=== PATIENT | female | born 1975 | race American Indian/Alaskan Native ===

== ENCOUNTER → 2016-10-13 | Outpatient (CLI) | payer BC ==
--- NOTE | 2016-10-13 16:36 | Diagnostic Imaging Report ---
EXAMINATION: Transabdominal and transvaginal pelvic ultrasound. INDICATION: Abnormal uterine bleeding. FINDINGS: The uterus is 8.8 x 4.9 x 4.7 cm. The endometrial stripe is 9 mm in thickness. In the anterior aspect of the cervix, there is a 1.7 cm cystic lesion compatible with a nabothian cyst. There is no uterine mass seen otherwise. The ovaries are not seen, probably obscured by bowel gas. There is a small to moderate amount of fluid in the pelvis. IMPRESSION: Nabothian cyst seen in the cervix with no focal uterine mass identified otherwise. Small to moderate amounts of free fluid in the pelvis seen. Dictated by: Dictated on workstation # [id number]
== END ==
LOC: RAD 14:06
PROVIDERS: ATTEND Obstetrics & Gynecology
DX: N88.8 Other specified noninflammatory disorders of cervix uteri (principal); N93.8 Other specified abnormal uterine and vaginal bleeding
CPT/HCPCS: 76830; 76856

== ENCOUNTER 2016-10-27 11:57 | Outpatient (CLI) | payer BC ==
[~2016-10-27] VITALS: Ht 158.8 cm; Wt 74.4 kg
[2016-10-27 12:11] VITALS: BP 133/74
[2016-10-27 12:38] LABS: BASOPHILS # (AUTO) 0.1 10^3/uL (0.0-0.1); BASOPHILS % (AUTO) 1 % (0-10); EOSINOPHILS # (AUTO) 0.2 10^3/uL (0.0-0.3); EOSINOPHILS % (AUTO) 2 % (0-10); LYMPHOCYTES # (AUTO) 1.9 X 10^3 (1.0-4.0); LYMPHOCYTES % (AUTO) 24 % (12-44); MEAN CORPUSCULAR HEMOGLOBIN 32 PG (25-34); MEAN CORPUSCULAR HGB CONC 34 G/DL (32-36); MEAN CORPUSCULAR VOLUME 94 FL (80-99); MEAN PLATELET VOLUME 9.6 FL (7.4-10.4); MONOCYTES # (AUTO) 0.7 X 10^3 (0.0-1.0); MONOCYTES % (AUTO) 8 % (0-12); NEUTROPHILS # (AUTO) 5.2 X 10^3 (1.8-7.8); NEUTROPHILS % (AUTO) 65 % (42-75); PLATELET COUNT 334 10^3/uL (130-400); RED BLOOD COUNT 4.85 10^6/uL (4.35-5.85); RED CELL DISTRIBUTION WIDTH 13.2 % (10.0-14.5)
[2016-10-27] MEDS ORDERED: LEVO112T2 PO (12:40)
[2016-10-29] MEDS ORDERED: IBUP-1773 PO (10:19)
== END 2016-10-27 12:25 | disposition home or self-care (01) ==
LOC: PREOP 11:57
PROVIDERS: ATTEND Obstetrics & Gynecology
DX: Z01.812 Encounter for preprocedural laboratory examination (principal); Z11.2 Encounter for screening for other bacterial diseases; N93.8 Other specified abnormal uterine and vaginal bleeding
CPT/HCPCS: 36415; 84703; 85025; 86850; 86900; 86901; 87081

== ENCOUNTER 2016-10-29 08:43 | Day surgery (SDC) | payer BC ==
[~2016-10-29] VITALS: Ht 158.8 cm; Wt 74.4 kg
[~2016-10-29 08:43] MED LIST: LEVO112T2 PO
[2016-10-29 08:55] VITALS: BP 130/70
[2016-10-29] MEDS ORDERED: CYCL1DRO OP (09:06)
[2016-10-29] MEDS ORDERED: LACTATED RINGERS 1,000 ML IV PRN (09:25)
[2016-10-29] MEDS ORDERED: ONDANSETRON 4 MG/2 ML (SDV) Z0FRAN IV ONE (09:30)
[2016-10-29] MEDS ORDERED: FAMOTIDINE 20MG/2ML IV (PEPCID) IV ONE (09:30)
[2016-10-29] MEDS ORDERED: MIDAZOLAM 2 MG/2 ML (VERSED) VIAL IV ONE (09:30)
--- NOTE | 2016-10-29 10:02 | Progress Note-Pre Operative ---
Pre-Operative Progress Note H&P Reviewed The H&P was reviewed, patient examined and no changes noted. Date Seen by Provider: Oct 29, 2016 Time Seen by Provider: 10:00 Date H&P Reviewed: Oct 29, 2016 Time H&P Reviewed: 09:55 Pre-Operative Diagnosis: AUB, History of infertility ANGÉLICA CHAVEZ DO Oct 29, 2016 10:02 am
[2016-10-29] MEDS ORDERED: D5 LR IV SOLUTION 1,000 ML IV SCH (10:18)
[2016-10-29] MEDS ORDERED: IBUP-1773 PO (10:19)
--- NOTE | 2016-10-29 10:20 | Discharge Inst-Women's Service ---
Discharge Inst-Women's Serv Depart Medication/Instructions New, Converted or Re-Newed RX: RX on Chart Consults/Follow Up Additional Follow Up: Yes Orders/Referrals Dr. Chavez in 2-3 weeks Activity Activity: Activity as Tolerated Driving Instructions: You May Drive NO SMOKING: NO SMOKING Nothing Inside Vagina: No Douching, No [place] (x 2 weeks), No Tampons Diet Discharge Diet: No Restrictions Symptoms to Report to : Bleeding Excessive, Pain Increased, Fever Over 101 Degrees F, Vaginal Bleeding Increase, Questions/Concerns For Any Problems or Questions: Contact Your Physician Skin/Wound Care Bathing Instructions: Shower (x 2 weeks) ANGÉLICA CHAVEZ DO Oct 29, 2016 10:20
[2016-10-29] MEDS ORDERED: LIDOCAINE PF 2% 5 ML (XYLOCAINE) VIAL ONE (10:29)
[2016-10-29] MEDS ORDERED: proPOfol 200 MG/20 ML (DIPRIVAN) VIAL IV ONE (10:29)
[2016-10-29] MEDS ORDERED: SEVOFLURANE (ULTANE) 15 ML INHAL SOLN ONE ×3 (10:29→11:12)
[2016-10-29] MEDS ORDERED: BUPIVACAINE 0.25% 30 ML (SENSORCAINE) VIAL ONE (10:29)
[2016-10-29] MEDS ORDERED: LACTATED RINGERS 1,000 ML IV ONE ×2 (10:29→11:12)
[2016-10-29] MEDS ORDERED: ONDANSETRON 4 MG/2 ML (SDV) Z0FRAN IVP PRN ×2 (10:30→11:45)
[2016-10-29] MEDS ORDERED: KETOROLAC 30 MG/ML VIAL IVP ONE ×2 (10:30→11:45)
[2016-10-29] MEDS ORDERED: MIDAZOLAM 2 MG/2 ML (VERSED) VIAL ONE (10:31)
[2016-10-29] MEDS ORDERED: fentaNYL INJECTION 100 MCG/2 ML AMP ONE (10:31)
[2016-10-29] MEDS ORDERED: DEXAMETHASONE PF 10 MG/ML (DECADRON) VIAL ONE (11:07)
[2016-10-29] MEDS ORDERED: PROMETHAZINE INJ 25 MG/ML (PHENERGAN) AMP IVP ONE (11:45)
[2016-10-29] MEDS ORDERED: fentaNYL INJECTION 100 MCG/2 ML AMP IVP PRN (11:45)
[2016-10-29 12:35] VITALS: BP 119/54
[2016-10-29 13:05] VITALS: BP 123/65
[2016-10-29 13:15] VITALS: BP 123/65
[2016-10-29] MEDS ORDERED: IBUPROFEN 600 MG (MOTRIN) TAB PO SCH (18:00)
--- NOTE | 2016-11-01 23:55 | OPERATIVE REPORT ---
PROCEDURE PHYSICIAN: ANGÉLICA CHAVEZ DATE OF PROCEDURE: 10/29/2016 PREOPERATIVE DIAGNOSES: 1. Abnormal uterine bleeding. 2. History of infertility. POSTOPERATIVE DIAGNOSES: 1. Abnormal uterine bleeding. 2. History of infertility. PROCEDURE: 1. D\T\C. 2. Hysteroscopy. SURGEON: Dr. Angélica Chavez. ANESTHESIA: General endotracheal. ESTIMATED BLOOD LOSS: Minimal. URINE OUTPUT: 20 mL clear drained at the end of procedure. FLUIDS: 1000 mL lactated ringer solution. FINDINGS: Normal uterine cavity with moderate amount of fluffy endometrial tissue. No intracavitary lesions or abnormalities. No adnexal fullness or masses appreciated on bimanual examination. SPECIMEN SENT: Endometrial curettings. INDICATIONS FOR THE PROCEDURE: This 41-year-old female is a patient that been established in my office had no concerns of her menstrual cycle prior to the last month where she had a significant amount of bleeding in a 2 week time span to the point the patient was afraid of becoming anemic. She came to my office for evaluation. Pelvic ultrasound was ordered, which was within normal limits. We discuss performing a D\T\C hysteroscopy both for treatment and diagnostic purposes due to her BMI of over 30 and age of over 41 with abnormal uterine bleeding. Discussed the possibility of endometrial hyperplasia or carcinoma so to rule this out as well. The risks of the procedure were discussed with the patient and her in detail in the preoperative area. The risk of bleeding, infection, damaging the uterus, permanent infertility, postoperative complications including thromboembolic events, and anesthesia, were all discussed with the patient in detail. After all of her questions were answered with her present, consent was obtained. The patient was taken to the operating room. OPERATIVE REPORT IN DETAIL: Once in the operating room, general anesthesia was found to be adequate. She was placed in the dorsal lithotomy position, prepped and draped in normal sterile fashion. She was first examined under anesthesia. The uterus is not enlarged, freely mobile. There is no adnexal fullness or masses appreciated on bimanual examination. A weighted speculum was inserted into the patient's vagina. A right angle retractor is used to visualize the cervix, grasped at the 12 o'clock position using a long Allis clamp. I then sound the uterine cavity depth, it was found to be 7 cm. I perform a paracervical block at 3 and 9 o'clock positions using 0.25% Marcaine. 5 mL are used at each injection site. Care was taken to aspirate before injecting. I then gently dilate the cervix using Hegar dilators to allow placement of my Truclear hysteroscope using the Truclear fluid management system which there is a leak in my bag so the deficit is not accurate. I use normal saline as my visual medium and progress the hysteroscope into the intrauterine cavity which appears to be grossly normal. I then perform a gentle curette of all endometrial and repeat my hysteroscope and once again, no abnormalities or lesions are noted of the endometrial cavity. After which I remove all the instruments from the patient's vagina. The patient tolerated the procedure well and was taken to the recovery area in stable condition. Lap and sponge counts were correct at the end of the procedure and instrument count is correct as well. Straight catheterization of 20 mL of clear urine is removed after the procedure is completed. Job ID: [id number] Dictated Date: 10/29/2016 11:33:53 Real Estate Broker Associate Date: 11/01/2016 23:44:27 / twan
== END 2016-10-29 13:25 | disposition home or self-care (01) ==
LOC: SDC 08:43
PROVIDERS: ATTEND Obstetrics & Gynecology
DX: N93.9 Abnormal uterine and vaginal bleeding, unspecified (principal); N84.0 Polyp of corpus uteri; E05.00 Thyrotoxicosis with diffuse goiter without thyrotoxic crisis or storm; Z85.850 Personal history of malignant neoplasm of thyroid; Z79.899 Other long term (current) drug therapy
CPT/HCPCS: 86850; 86900; 86901; 88305; 94664

== ENCOUNTER → 2017-03-17 | Outpatient (CLI) | payer BC ==
[~2017-03-17] MED LIST changes: +CYCL1DRO OP; +IBUP-1773 PO
--- NOTE | 2017-03-18 09:03 | Diagnostic Imaging Report ---
Bilateral screening mammogram 2D views with tomosynthesis. The current study was also evaluated with a Computer Aided Detection (CAD) system. INDICATION: Screening. No current complaints stated on the questionnaire. COMPARISON: None. This is a baseline exam. FINDINGS: The breasts are composed of heterogeneously dense parenchyma which may decrease mammographic sensitivity. No definite mass or suspicious calcifications seen. Questionable architectural distortion in the 2-view images is seen which appears to relate to summation artifact based on the tomographic evaluation. This involves mostly the outer aspect of the right breast breast and central aspect of the left MLO view. IMPRESSION: Focal compression evaluation for questionable architectural distortion in the outer aspect of the right CC and central aspect of the left MLO views with ultrasound evaluation recommended. ACR BI-RADS Category 0: Incomplete. (Needs additional imaging evaluation). Result letter will be mailed to the patient. Note: At least 10% of breast cancer is not imaged by mammography. Dictated by: Dictated on workstation # [id number]
== END ==
LOC: RAD 15:22
PROVIDERS: ATTEND Obstetrics & Gynecology
DX: Z12.31 Encounter for screening mammogram for malignant neoplasm of breast (principal)
CPT/HCPCS: 77067

== ENCOUNTER → 2017-03-26 | Outpatient (CLI) | payer BC ==
--- NOTE | 2017-03-26 18:17 | Diagnostic Imaging Report ---
Bilateral diagnostic mammogram with tomography. The current study was also evaluated with a Computer Aided Detection (CAD) system. COMPARISON: 03/17/2017. INDICATION: Asymmetries along the outer aspect of the right breast and central aspect of the left breast seen on recent screening of 03/17/2017. FINDINGS: Focal compression views and tomography evaluation demonstrate persistent asymmetries without definitive underlying lesion probably related to the underlying fibroglandular tissue with summation artifact. IMPRESSION: The asymmetries on recent screening are favored to be secondary summation artifact from the background dense parenchyma. Ultrasound evaluation pending. ACR BI-RADS Category 0: Incomplete. (Needs additional imaging evaluation). Result letter will be mailed to the patient. Note: At least 10% of breast cancer is not imaged by mammography. Dictated by: Dictated on workstation # [id number]
--- NOTE | 2017-03-26 18:27 | Diagnostic Imaging Report ---
Bilateral breast ultrasound. INDICATION: Asymmetries seen in the breasts bilaterally. FINDINGS: The four quadrants and retroareolar region of each breast is scanned with no underlying abnormality seen. IMPRESSION: Negative study. Asymmetries seen on mammography are favored to be summation artifact of parenchyma but are indeterminate. Evaluation with a six-month mammographic follow-up is recommended. ACR BI-RADS Category 3: Probably benign findings. Dictated by: Dictated on workstation # [id number]
== END ==
LOC: RAD 08:38
PROVIDERS: ATTEND Obstetrics & Gynecology
DX: N64.89 Other specified disorders of breast (principal)
CPT/HCPCS: 77066

== ENCOUNTER → 2017-05-19 | Outpatient (CLI) | payer BC ==
--- NOTE | 2017-05-19 15:01 | Diagnostic Imaging Report ---
Indication: Evaluate viability. FINDINGS: There is a small intrauterine gestational sac containing a pole. Crosby-rump length measurement is approximately 4 mm consistent with 6 weeks 1 day gestation. heart rate was recorded 66 beats per minute. No perigestational sac hemorrhage is seen. A yolk sac is present. Adnexa are unremarkable. IMPRESSION: Single live IUP 6 weeks 1 day gestational age. The estimated date of confinement sonographically is 01/11/2018. Dictated by: Dictated on workstation # [id number]
== END ==
LOC: RAD 13:42
PROVIDERS: ATTEND Obstetrics & Gynecology Reproductive Endocrinology
DX: O09.521 Supervision of elderly multigravida, first trimester (principal); Z3A.01 Less than 8 weeks gestation of pregnancy
CPT/HCPCS: 76817

== ENCOUNTER 2017-05-29 15:30 | Emergency (ER) | payer BC ==
[~2017-05-29] VITALS: Ht 157.5 cm; Wt 63.0 kg
--- NOTE | 2017-05-29 16:16 | ED GU-Female ---
General Chief Complaint: -Female Stated Complaint: POSS MISCARRIAGE Nursing Triage Note: AMB TO ED REPORTS IS 8 WEEKS PREG. ONSE OF CRAMPING WITH BLEEDING YESTERDAY. BLEEDING AND CRAMPING HAS SLOWED TODAY. Nursing Sepsis Screen: No Definite Risk Source: patient Exam Limitations: no limitations History of Present Illness Date Seen by Provider: May 29, 2017 Time Seen by Provider: 15:40 Initial Comments Here with report of concerns of miscarriage. Started having cramping and bleeding yesterday and actually has had a little bit of bleeding for the last 5 days. She is actively trying to get and has been taking medication to help with this. Reports she is approximately 8 weeks by ultrasound. Does complain of lower abdominal cramping and some bleeding but not a significant amount of bleeding. Follows with Dr. Nielsen. Timing/Duration: week, changing over time Severity/Quality: cramping Location: suprapubic Radiation: none Activities at Onset: none Sexual [place] History: less than 2 months ago, single partner Modifying Factors: Improves With Resting Associated Symptoms: abdominal pain, No dysuria, No fever/chills, No nausea/ vomiting Allergies and Home Medications Allergies Coded Allergies: Sulfa (Sulfonamide Antibiotics) (Verified Allergy, Unknown, HIVES, 10/27/16 ) cephalexin (Verified Allergy, Unknown, HIVES, 10/27/16) latex (Verified Allergy, Unknown, HIVES, 10/27/16) meperidine (Verified Allergy, Unknown, HIVES, 10/27/16) morphine (Verified Allergy, Unknown, HIVES, 10/27/16) Home Medications Cyclosporine 1 Each [place], 1 EACH OP DAILY, (Reported) Ibuprofen 600 Mg Tablet, 600 MG PO Q6H, #60 Ref 0 Prescribed by: ANGÉLICA NIELSEN on 10/29/16 1019 Levothyroxine Sodium 112 Mcg Tablet, 112 MCG PO DAILY, (Reported) Constitutional: see HPI, No chills, No fever Respiratory: no symptoms reported Cardiovascular: no symptoms reported Gastrointestinal: see HPI, No nausea, No vomiting Genitourinary: see HPI, denies burning : Yes Musculoskeletal: no symptoms reported Psychiatric/Neurological: No Symptoms Reported Past Jwpchcl-Rhqnnc-Kkzoeu Hx Patient Social History Alcohol Use: Denies Use Recreational Drug Use: No Smoking Status: Never a Smoker Recent Foreign Travel: No Contact w/Someone Who Travel: No Recent Infectious Disease Expo: No Recent Hopitalizations: No Seasonal Allergies Seasonal Allergies: Yes Surgeries History of Surgeries: Yes (oral sx, 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 ) Surgeries: Gallbladder, Thyroidectomy Respiratory History of Respiratory Disorde: No Cardiovascular History of Cardiac Disorders: Yes (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 , ) Cardiac Disorders: Heart Murmur Neurological History of Neurological Disord: No Gastrointestinal History of Gastrointestinal Di: No Musculoskeletal History of Musculoskeletal Dis: No Endocrine History of Endocrine Disorders: Yes (graves disease-thyroidectomy) Cancer History of Cancer: Yes Cancer: Thyroid Psychosocial History of Psychiatric Problem: Yes Behavioral Health Disorders: Anxiety, Depression Integumentary History of Skin or Integumenta: No Blood Transfusions History of Blood Disorders: No Reviewed Nursing Assessment Reviewed/Agree w Nursing PMH: Yes Family Medical History Significant Family History: No Pertinent Family Hx Physical Exam Vital Signs Vital Signs - First Documented 05/29/17 05/29/17 15:33 17:17 Pulse 83 Resp 18 B/P (MAP) 140/99 (113) Pulse Ox 99 O2 Delivery Room Air Capillary Refill : Less Than 3 Seconds General Appearance: WD/WN, no apparent distress HEENT: PERRL/EOMI, pharynx normal Neck: full range of motion, supple Cardiovascular: regular rate, rhythm, no murmur Respiratory: lungs clear, normal breath sounds Gastrointestinal: soft, No guarding, No rebound, tenderness (mild suprapubic region) Back: normal inspection, no CVA tenderness, no vertebral tenderness Extremities: non-tender, normal inspection Neurologic/Psychiatric: alert, oriented x 3 Skin: normal color, warm/dry Progress/Results/Core Measures Suspected Sepsis Recent Fever Within 48 Hours: No Infection Criteria Present: None New/Unexplained Altered Menta: No Sepsis Screen: No Definite Risk Sepsis Diagnosis: SIRS Temperature: Pulse: 83 Respiratory Rate: 18 Laboratory Tests 05/29/17 16:09: White Blood Count 8.8 Blood Pressure 140 /99 Mean: 113 Laboratory Tests 05/29/17 16:09: Platelet Count 329 Results/Orders Lab Results Laboratory Tests Test 05/29/17 16:05 05/29/17 16:09 Range/Units Human Chorionic Gonadotropin, Quant 1507 H <5 MIU/ML White Blood Count 8.8 4.3-11.0 10^3/uL Red Blood Count 4.88 4.35-5.85 10^6/uL Hemoglobin 16.3 H 11.5-16.0 G/DL Hematocrit 47 35-52 % Mean Corpuscular Volume 96 80-99 FL Mean Corpuscular Hemoglobin 33 25-34 PG Mean Corpuscular Hemoglobin Concent 35 32-36 G/DL Red Cell Distribution Width 12.8 10.0-14.5 % Platelet Count 329 130-400 10^3/uL Mean Platelet Volume 9.1 7.4-10.4 FL My Orders Orders - TALYA NAVARRETE MD Us Ob Single Fetus<14 [id number] (05/29/17 15:58) Cbc No Diff (05/29/17 15:58) Hcg,Quantitative (05/29/17 16:38) Rh Immune Globulin Rhophylac (05/29/17 16:38) Rhogam Administration (05/29/17 16:38) Vital Signs/I&O Vital Sign - Last 12Hours 05/29/17 05/29/17 15:33 17:17 Pulse 83 18 B/P (MAP) 140/99 (113) Pulse Ox 99 98 O2 Delivery Room Air Capillary Refill : Less Than 3 Seconds Blood Pressure Mean: 113 Progress Note : Progress Note Seen and evaluated. Bedside ultrasound performed by me concerning for probable miscarriage with tissue at the cervical os. Labs and formal ultrasound ordered. Patient is be negative. RhoGAM ordered. I did discuss the case with Dr. Jessica at 1600. 1700: Formal ultrasound does confirm completed miscarriage. This was discussed with the patient and family. They verbalized understanding. I did rediscuss the case with Dr. Jessica. Copy of chart to Dr. Nielsen. Discharged home with return precautions. Patient verbalize understanding of instructions and agreement with plan. Diagnostic Imaging Diagonstic Imaging: Ultrasound Plain Films/CT/US/NM/MRI: pelvis Comments NAME: MELISSAJF AKBAR MED REC#: [id number] PT STATUS: DEP ER : 1975 PHYSICIAN: TALYA NAVARRETE MD ADMIT DATE: 05/29/17/ER Signed Date of Exam: 05/29/17 US OB SINGLE FETUS<14 [id number] PROCEDURE: US OB single fetus <14 wks. TECHNIQUE: Multiple real-time grayscale images were obtained over the gravid uterus in various projections. INDICATION: Threatened . FINDINGS: Examination shows an empty uterus. The endometrium measures 9 mm. No gestational sac is seen within the uterus. The myometrium is normal. Neither ovary is identified but there is no adnexal mass or free fluid seen. IMPRESSION: No intrauterine or ectopic is identified at this time. Dictated by: Dictated on workstation # [id number] Dict: 05/29/176 Trans: 05/29/171722 Interpreted by: EMERY CHRISTIANSON MD Electronically signed by: EMERY CHRISTIANSON MD 05/29/171722 Departure Impression Impression: Primary Impression: Complete miscarriage Disposition: HOME, SELF-CARE Condition: Stable Departure-Patient Inst. Decision time for Depature: 17:05 Referrals: ANH MEDELLIN MD (PCP/Family) Primary Care Physician Patient Instructions: Miscarriage (DC) Add. Discharge Instructions: All discharge instructions reviewed with patient and/or family. Voiced understanding. You may take the ibuprofen every 6-8 hours as needed for pain. You may take Tylenol or the generic acetaminophen 1000 mg every 6-8 hours as needed for pain. Drink plenty of fluids. Follow-up with Dr. Nilesen on Wednesday or Wednesday for further evaluation as needed. Return for worse pain, fever, vomiting, bleeding greater than 2 pads per hour for more than 2 hours or other concerns as needed. Copy Copies To 1: ANGÉLICA NIELSEN TIMOTHY D MD May 29, 2017 16:16
[2017-05-29 16:19] LABS: HEMOGLOBIN 16.3 G/DL (11.5-16.0); MEAN PLATELET VOLUME 9.1 FL (7.4-10.4); RED BLOOD COUNT 4.88 10^6/uL (4.35-5.85); RED CELL DISTRIBUTION WIDTH 12.8 % (10.0-14.5); WHITE BLOOD COUNT 8.8 10^3/uL (4.3-11.0)
[2017-05-29 17:17] VITALS: BP 137/8
--- NOTE | 2017-05-29 17:18 | Diagnostic Imaging Report ---
PROCEDURE: US OB single fetus <14 wks. TECHNIQUE: Multiple real-time grayscale images were obtained over the gravid uterus in various projections. INDICATION: Threatened . FINDINGS: Examination shows an empty uterus. The endometrium measures 9 mm. No gestational sac is seen within the uterus. The myometrium is normal. Neither ovary is identified but there is no adnexal mass or free fluid seen. IMPRESSION: No intrauterine or ectopic is identified at this time. Dictated by: Dictated on workstation # [id number]
== END 2017-05-29 17:19 | disposition home or self-care (01) ==
LOC: EDUNIT# 15:30 → ER 15:31
DX: O03.9 Complete or unspecified spontaneous abortion without complication (principal); O99.341 Other mental disorders complicating pregnancy, first trimester; F41.9 Anxiety disorder, unspecified; F32.9 Major depressive disorder, single episode, unspecified; Z85.850 Personal history of malignant neoplasm of thyroid; Z90.89 Acquired absence of other organs; Z88.2 Allergy status to sulfonamides; Z91.040 Latex allergy status; Z88.5 Allergy status to narcotic agent; Z3A.08 8 weeks gestation of pregnancy
CPT/HCPCS: 36415; 76801; 84702; 85027; 96372; 99284

== ENCOUNTER → 2017-09-22 | Outpatient (CLI) | payer BC ==
--- NOTE | 2017-09-22 22:01 | Diagnostic Imaging Report ---
INDICATION: Followup exam. At this time there are no current complaints. EXAMINATION: Bilateral breast digital diagnostic mammogram with CAD. The current study was also evaluated with a Computer Aided Detection (CAD) system. COMPARISON: This study was compared to the prior exams of 03/17/2017 and 03/26/2017. FINDINGS: The baseline screening mammogram performed on 03/17/2017 raised the question of architectural distortion in the superior aspect of the right breast in the central aspect of the left breast. By history, patient has had prior surgery in the left retroareolar region. The subsequent diagnostic mammogram and ultrasound exam of 03/26/2017 failed to show any evidence for malignancy. On this study, the areas in question do not appear to have changed adversely. There is no primary or secondary sign of malignancy noted. The fibroglandular tissue in both breasts is quite dense. This does limit the sensitivity of this exam. There is no primary or second sign of malignancy noted. IMPRESSION: 1. There is no evidence for malignancy. 2. Due to the dense fibroglandular tissue in both breasts, It may prove worthwhile to have a short-term (six month) followup mammogram of both breasts for continued evaluation. ACR BI-RADS Category 3: Probably benign findings. Result letter will be mailed to the patient. Note: At least 10% of breast cancer is not imaged by mammography. Dictated by: Dictated on workstation # [id number]
== END ==
LOC: RAD 08:31
PROVIDERS: ATTEND Obstetrics & Gynecology
DX: R92.8 Other abnormal and inconclusive findings on diagnostic imaging of breast (principal); Z87.898 Personal history of other specified conditions
CPT/HCPCS: 77066

== ENCOUNTER 2018-02-03 15:46 | Outpatient (CLI) | payer BC ==
[~2018-02-03] VITALS: Ht 157.5 cm; Wt 72.1 kg
[2018-02-03] MEDS ORDERED: LEVO125T6 PO (16:10)
[2018-02-04] MEDS ORDERED: HYDR-4226 PO (08:41)
[2018-02-04] MEDS ORDERED: IBUP-1773 PO (08:41)
== END 2018-02-03 16:21 | disposition home or self-care (01) ==
LOC: PREOP 15:46
PROVIDERS: ATTEND Obstetrics & Gynecology
DX: Z01.818 Encounter for other preprocedural examination (principal)

== ENCOUNTER 2018-02-04 07:25 | Day surgery (SDC) | payer BC ==
[~2018-02-04] VITALS: Ht 157.5 cm; Wt 72.1 kg
[~2018-02-04 07:25] MED LIST changes: +LEVO125T6 PO
[2018-02-04 07:40] VITALS: BP 125/71
[2018-02-04] MEDS ORDERED: fentaNYL INJECTION 100 MCG/2 ML AMP ONE (07:40)
[2018-02-04] MEDS ORDERED: MIDAZOLAM 2 MG/2 ML (VERSED) VIAL ONE ×2 (07:40→07:57)
[2018-02-04] MEDS ORDERED: LIDOCAINE PF 2% 5 ML (XYLOCAINE) VIAL ONE (07:41)
[2018-02-04] MEDS ORDERED: SEVOFLURANE (ULTANE) 15 ML INHAL SOLN ONE (07:41)
[2018-02-04] MEDS ORDERED: ONDANSETRON 4 MG/2 ML (SDV) Z0FRAN ONE ×2 (07:41→10:02)
[2018-02-04] MEDS ORDERED: DEXAMETHASONE 10 MG/ML (DECADRON) 1 ML VIAL ONE (07:41)
[2018-02-04] MEDS ORDERED: proPOfol 200 MG/20 ML (DIPRIVAN) VIAL IV ONE (07:41)
[2018-02-04] MEDS ORDERED: MIDAZOLAM 2 MG/2 ML (VERSED) VIAL IV ONE (07:45)
[2018-02-04] MEDS ORDERED: FAMOTIDINE 20MG/2ML IV (PEPCID) IV ONE (07:45)
[2018-02-04] MEDS ORDERED: FAMOTIDINE 20MG/2ML IV (PEPCID) ONE (07:57)
[2018-02-04] MEDS: LACTATED RINGERS 1,000 ML IV PRN ×2 (07:58→09:27)
[2018-02-04 08:05] LABS: BASOPHILS % (AUTO) 0 % (0-10); EOSINOPHILS # (AUTO) 0.1 10^3/uL (0.0-0.3); EOSINOPHILS % (AUTO) 1 % (0-10); HEMATOCRIT 44 % (35-52); HEMOGLOBIN 15.8 G/DL (11.5-16.0); LYMPHOCYTES # (AUTO) 1.7 X 10^3 (1.0-4.0); LYMPHOCYTES % (AUTO) 22 % (12-44); MEAN CORPUSCULAR HEMOGLOBIN 34 PG (25-34); MEAN CORPUSCULAR HGB CONC 36 G/DL (32-36); MEAN CORPUSCULAR VOLUME 95 FL (80-99); MEAN PLATELET VOLUME 9.6 FL (7.4-10.4); MONOCYTES # (AUTO) 0.6 X 10^3 (0.0-1.0); MONOCYTES % (AUTO) 7 % (0-12); NEUTROPHILS # (AUTO) 5.2 X 10^3 (1.8-7.8); NEUTROPHILS % (AUTO) 69 % (42-75); PLATELET COUNT 331 10^3/uL (130-400); RED BLOOD COUNT 4.65 10^6/uL (4.35-5.85); RED CELL DISTRIBUTION WIDTH 13.3 % (10.0-14.5); WHITE BLOOD COUNT 7.6 10^3/uL (4.3-11.0)
[2018-02-04] MEDS ORDERED: D5 LR IV SOLUTION 1,000 ML IV SCH (08:37)
--- NOTE | 2018-02-04 08:37 | Progress Note-Pre Operative ---
Pre-Operative Progress Note H&P Reviewed The H&P was reviewed, patient examined and no changes noted. Date Seen by Provider: Feb 04, 2018 Time Seen by Provider: 08:15 Date H&P Reviewed: Feb 04, 2018 Time H&P Reviewed: 08:00 Pre-Operative Diagnosis: Missed ANGÉLICA Huerta DO Feb 04, 2018 8:37 am
--- NOTE | 2018-02-04 08:39 | Discharge Inst-Women's Service ---
Discharge Inst-Women's Serv Depart Medication/Instructions New, Converted or Re-Newed RX: RX on Chart Consults/Follow Up Additional Follow Up: Yes Orders/Referrals Dr. Chavez in 3 weeks Activity Activity: Activity as Tolerated Driving Instructions: You May Drive NO SMOKING: NO SMOKING Nothing Inside Vagina: No Douching, No [place], No Tampons Diet Discharge Diet: No Restrictions Symptoms to Report to : Bleeding Excessive, Pain Increased, Fever Over 101 Degrees F, Vaginal Bleeding Increase, Questions/Concerns For Any Problems or Questions: Contact Your Physician ANGÉLICA CHAVEZ DO Feb 04, 2018 8:39 am
[2018-02-04] MEDS ORDERED: IBUP-1773 PO (08:41)
[2018-02-04] MEDS ORDERED: HYDR-4226 PO (08:41)
[2018-02-04] MEDS ORDERED: ONDANSETRON 4 MG/2 ML (SDV) Z0FRAN IVP PRN ×2 (08:45→10:00)
[2018-02-04] MEDS ORDERED: KETOROLAC 30 MG/ML VIAL IVP ONE (08:45)
[2018-02-04] MEDS ORDERED: HYDROcodone/APAP 5 MG/325 MG (LORTAB) TAB PO PRN (08:45)
[2018-02-04] MEDS ORDERED: HYDROmorphone 2 MG/ML VIAL (DILAUDID) IV ONE (10:00)
[2018-02-04 10:30] VITALS: BP 106/53
[2018-02-04 11:00] VITALS: BP 112/63
--- NOTE | 2018-02-04 11:20 | Anesthesia-General Post-Op ---
General Patient Condition Mental Status/LOC: Same as Preop Cardiovascular: Satisfactory Nausea/Vomiting: Absent Respiratory: Satisfactory Pain: Controlled Complications: Absent Post Op Complications Complications None Follow Up Care/Instructions Patient Instructions None needed. Anesthesia/Patient Condition Patient Condition Patient is doing well, no complaints, stable vital signs, no apparent adverse anesthesia problems. No complications reported per nursing. ALLI WATT CRNA Feb 04, 2018 11:20
[2018-02-04 11:30] VITALS: BP 107/61
[2018-02-04 12:10] VITALS: BP 107/61
--- NOTE | 2018-02-04 15:10 | OPERATIVE REPORT ---
DATE OF SERVICE: PREOPERATIVE DIAGNOSIS: A 42-year-old female with missed AB. POSTOPERATIVE DIAGNOSIS: A 42-year-old female with missed AB. PROCEDURE: Suction D and C. SURGEON: Angélica Chavez DO. ANESTHESIA: General endotracheal. ESTIMATED BLOOD LOSS: 200 mL. FLUIDS: 1300 mL of lactated Ringer solution. URINE OUTPUT: 125 clear, drained at the start of the procedure. SPECIMEN SENT: Products of conceptions and cervical polyp. INDICATION FOR PROCEDURE: This 42-year-old female is the patient that was seen in my office early in the week and diagnosed with a missed AB. She underwent her spontaneous miscarriage on previous at home, which they did not want to do that again due to discomfort, inflamed and bleeding, so she was wanting to proceed with suction D and C. Risks of the procedure were discussed with the patient in detail. After all of her questions were answered, consent was obtained in the preoperative area and the patient was taken to the operating room. OPERATIVE REPORT IN DETAIL: Once in the operating room, general anesthesia was found to be adequate. She was placed in dorsal lithotomy position, prepped and draped in a normal sterile fashion. A timeout was performed. I then drained the bladder using straight catheterization. Weighted speculum was inserted into the patient's vagina. A right angle retractor was used to visualize the cervix. It was grasped at 12 o'clock position using a long Allis clamp. At the cervix, there was a cervical polyp, which was removed using a long ring forceps and twisted off and sent separately from the products of conception. I then gently sound the uterine cavity, that sounded to be 8 cm and then I also dilated the cervix using Hegar dilators for approximately 1 cm dilatation. I then selected a #10 rigid [place] suction curette and placed this within the uterine cavity. I activated the [place] suction device, which reaches a pressure of 60 mmHg at which point I then cleared the endometrial uterine cavity. Using the suction Salvatore curette on several different passes by rotating it and moving it back and forward gently, the care was taken not to perforate the uterus. After this was done on several different passes and there was little to no more tissue coming out, I then performed a gentle sharp curettage using a medium sized curette after which there was not any bleeding noted. I then removed all the instruments from the patient's vagina. The patient tolerated the procedure well and was taken to the recovery area in stable condition. Lap and sponge count was correct at the end of procedure. The instrument count was correct as well. Job ID: [id number] DocumentID: [id number] Dictated Date: 02/04/2018 09:42:35 Sap Hana Developer Date: 02/04/2018 15:09:40 Dictated By: ANGÉLICA CHAVEZ DO
== END 2018-02-04 12:10 | disposition home or self-care (01) ==
LOC: SDC 07:25
PROVIDERS: ATTEND Obstetrics & Gynecology
DX: O02.1 Missed abortion (principal); N84.1 Polyp of cervix uteri; E05.00 Thyrotoxicosis with diffuse goiter without thyrotoxic crisis or storm; Z79.899 Other long term (current) drug therapy
CPT/HCPCS: 36415; 85025; 86850; 86900; 86901; 87081; 88305; 94664

== ENCOUNTER → 2018-04-13 | Outpatient (CLI) | payer BC ==
[~2018-04-13] MED LIST changes: +HYDR-4226 PO
--- NOTE | 2018-04-13 12:09 | Diagnostic Imaging Report ---
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 COMPARISON: Correlation is made with prior mammograms from 09/22/2017 and 03/17/2017. TECHNIQUE: Bilateral 2D and 3D diagnostic mammography was performed. The current study was also evaluated with a Computer Aided Detection (CAD) system. FINDINGS: Both breasts remain heterogeneously dense, limiting the sensitivity of mammography. Overall parenchymal pattern is stable. No mass or malignant-appearing microcalcifications are seen. There are benign calcifications present. The axillae are unremarkable. IMPRESSION: No mammographic features suspicious for malignancy are identified. The patient may return to routine annual screening mammography. ACR BI-RADS Category 2: Benign findings. Result letter will be mailed to the patient. Note: At least 10% of breast cancer is not imaged by mammography. Dictated by: Dictated on workstation # [id number]
== END ==
LOC: RAD 08:51
PROVIDERS: ATTEND Obstetrics & Gynecology
DX: R92.8 Other abnormal and inconclusive findings on diagnostic imaging of breast (principal)
CPT/HCPCS: 77066

== ENCOUNTER → 2019-06-22 | Outpatient (CLI) | payer BC ==
--- NOTE | 2019-06-22 09:07 | Diagnostic Imaging Report ---
INDICATION: Routine screening. Comparison is made with prior mammogram from 04/13/2018 and 09/22/2017. 2-D and 3-D bilateral screening mammography was performed with a Computer Aided Detection (CAD) system. 3-D tomosynthesis was also performed and reviewed. FINDINGS: Both breasts are heterogeneously dense, limiting the sensitivity of mammography. The parenchymal pattern is stable. No mass or malignant appearing microcalcifications are seen. Axillae are unremarkable. IMPRESSION: No mammographic features suspicious for malignancy are identified. ACR BI-RADS Category 1: Negative. Result letter will be mailed to the patient. Note: At least 10% of breast cancer is not imaged by mammography. Dictated by: Dictated on workstation # [id number]
== END ==
LOC: RAD 07:31
PROVIDERS: ATTEND Obstetrics & Gynecology
DX: Z12.31 Encounter for screening mammogram for malignant neoplasm of breast (principal)
CPT/HCPCS: 77067

== ENCOUNTER → 2020-07-08 | Outpatient (CLI) | payer BC ==
--- NOTE | 2020-07-08 12:30 | Diagnostic Imaging Report ---
INDICATION: Routine screening. COMPARISON: 06/22/2019 and 04/13/2018. TECHNIQUE: 2D and 3D bilateral screening mammography was performed with CAD. FINDINGS: Both breasts are heterogeneously dense, limiting the sensitivity of mammography. No mass or malignant appearing microcalcifications are seen. The axillae are unremarkable. IMPRESSION: No mammographic features suspicious for malignancy are identified. ACR BI-RADS Category 1: Negative. Result letter will be mailed to the patient. Note: At least 10% of breast cancer is not imaged by mammography. Dictated by: Dictated on workstation # [id number]
== END ==
LOC: RAD 10:45
PROVIDERS: ATTEND Obstetrics & Gynecology
DX: Z12.31 Encounter for screening mammogram for malignant neoplasm of breast (principal)
CPT/HCPCS: 77063; 77067

== ENCOUNTER → 2021-07-21 | Outpatient (CLI) | payer BC ==
--- NOTE | 2021-07-22 13:15 | Diagnostic Imaging Report ---
INDICATION: Routine screening. COMPARISON: 07/08/2020 and 06/22/2019. TECHNIQUE: 2D and 3D bilateral screening mammography was performed with CAD. FINDINGS: Both breasts are heterogeneously dense, limiting the sensitivity of mammography. The parenchymal pattern is stable. No dominant mass or malignant-appearing microcalcifications are seen. There are scattered benign calcifications bilaterally. The axillae are unremarkable. IMPRESSION: No mammographic features suspicious for malignancy are identified. ACR BI-RADS Category 2: Benign findings. Result letter will be mailed to the patient. Note: At least 10% of breast cancer is not imaged by mammography. Dictated by: Dictated on workstation # [id number]
== END ==
LOC: RAD 15:23
PROVIDERS: ATTEND Nurse Practitioner Women's Health
DX: Z12.31 Encounter for screening mammogram for malignant neoplasm of breast (principal)
CPT/HCPCS: 77063; 77067

== ENCOUNTER → 2022-08-27 | Outpatient (CLI) | payer BC ==
--- NOTE | 2022-08-28 09:12 | Diagnostic Imaging Report ---
Indication: Routine screening. Comparison is made with prior mammogram from 07/21/2021 and 07/08/2020. 2-D and 3-D bilateral screening mammography was performed with CAD. CAD is utilized. The current study was also evaluated with a Computer Aided Detection (CAD) system. Both breasts are heterogeneously dense, limiting the sensitivity of mammography. The parenchymal pattern is stable. No dominant mass or malignant-appearing microcalcifications are seen. Axillae are unremarkable. IMPRESSION: BI-RADS Category 1 No mammographic features suspicious for malignancy are identified. ACR BI-RADS Category 1: Negative. Result letter will be mailed to the patient. Note: At least 10% of breast cancer is not imaged by mammography. Dictated by: Dictated on workstation # [id number]
== END ==
LOC: RAD 14:36
PROVIDERS: ATTEND Obstetrics & Gynecology
DX: Z12.31 Encounter for screening mammogram for malignant neoplasm of breast (principal)
CPT/HCPCS: 77063; 77067